=== PATIENT | female | born 2000 | race Caucasian/White ===

== ENCOUNTER 2022-07-01 20:57 | Emergency (ER) | payer MEDICAID ==
[~2022-07-01] VITALS: Ht 154.9 cm; Wt 77.1 kg
[2022-07-01 21:10] VITALS: BP 130/84
--- NOTE | 2022-07-01 21:13 | NUR ---
A/W BED AMBULATORY TO [facility]
[2022-07-01 21:15] VITALS: BP 130/84
--- NOTE | 2022-07-01 23:37 | NUR ---
SEEN AND EXAMINED BY [facility]
[2022-07-01] MEDS ORDERED: POLY10SO OP (23:49)
--- NOTE | 2022-07-01 23:57 | NUR ---
Patient discharged with v/s stable. Written and verbal after care instructions given and explained. Patient verbalized understanding. Ambulatory with steady gait. All questions addressed prior to discharge. Advised to follow up with PMD.
== END 2022-07-01 23:57 | disposition home or self-care (01) ==
LOC: MED 20:57
DX: H10.9 Unspecified conjunctivitis (principal); Z79.2 Long term (current) use of antibiotics
CPT/HCPCS: 99281